=== PATIENT | female | born 1960 | race Caucasian/White ===

== ENCOUNTER 2016-11-14 07:08 | Emergency (ER) | payer MEDICAID ==
[~2016-11-14] VITALS: Ht 157.5 cm; Wt 65.0 kg
[~2016-11-14 07:08] MED LIST: ALBU6.7H INH; ALEN1TAB48 PO; DARU800T PO; DEPA500T3 PO; DIPH25CA PO; ELVI1TAB3 PO; EMOLLOT TOPICAL; FLUT1SPR5 EACH NARE; LACT10SO PO; LEVO.1 PO; MULTTAB67 PO; OXYB5TAB10 PO; OXYGENTANK NAS.CANULA; PERI8.6T PO; PERP16TA6 PO; POLY17PO3 PO; PROM6.256 PO; PULSE OXIMETER1 MI1; SERT-129 PO; TRIH2 PO
[2016-11-14 07:16] VITALS: BP 160/92; PULSE 69; RESP 17; TEMP 97.9; O2SAT 96
--- NOTE | 2016-11-14 07:38 | PD ---
HPI Chief Complaint: Chest Pain Time Seen by Provider: 07:21 Travel History International Travel<30 days: No Contact w/Intl Traveler<30days: No Traveled to known affect area: No History of Present Illness HPI 56-year-old female complains of generalized malaise and abdominal pain. Patient states the symptoms started yesterday. Patient has history COPD on home O2, schizophrenia, depression, hypothyroidism, HIV positive. Patient on medication for that. Patient denies any headache. Patient denies any visual change. Patient denies any neck pain. Patient denies any chest pain. Patient states that her heart feeling weak. Patient is a smoker. Patient states that she has mild cramping on the abdomen since yesterday. Patient denies any nausea vomiting diarrhea. Patient denies any dysuria or frequency. Patient denies any vaginal discharge or bleeding. Patient denies any back pain. Patient denies any focal weakness or numbness of the extremity. Patient was put on alendronate for osteoporosis. Patient supposed to receive 70 mg tablet weekly however patient has been given daily according to [facility] medical record. PFSH Past Medical History Hx Anticoagulant Therapy: No Anemia: Yes Autoimmune Disease: Yes Depression: Yes Cardiovascular Problems: No Chemotherapy: No Cerebrovascular Accident: No Diabetes: No Diminished Hearing: No Gastrointestinal Disorders: No Genitourinary: No Headaches: Yes Immune Disorder: Yes (HIV+) Insomnia: Yes Musculoskeletal: Yes (OSTEOPOROSIS) Neurologic: No Psychiatric: Yes Reproductive: No Respiratory: No Schizophrenia: Yes Thyroid Disease: Yes (HYPOTHYROID) ?: Not Menopausal: Yes : 3 Para: 2 Miscarriage: 1 : 0 Tubal Ligation: Yes Past Surgical History Hysterectomy: No Tonsillectomy: Yes Other Surgery: No Social History Alcohol Use: No Tobacco Use: Yes (1/2 PPD) Substance Use: No Allergies-Medications (Allergen,Severity, Reaction): Coded Allergies: haloperidol (Unverified Allergy, Severe, STIFFNESS, 10/31/16) fluphenazine (Unverified Adverse Reaction, Severe, 10/31/16) lurasidone (Unverified Adverse Reaction, Severe, STIFF, 10/31/16) olanzapine (Unverified Adverse Reaction, Severe, STIFF, 10/31/16) Reported Meds & Prescriptions Reported Meds & Active Scripts Active Miralax (Polyethylene Glycol 3350) 17 Gm Powd.pack 1 Pack PO DAILY Alyce-Colace (Sennosides-Docusate Sodium) 8.6-50 Mg Tab 1 Tab PO BID PRN Pulse Oximeter (Device) 1 Mis Mis 1 Ea .ROUTE DIRECTED Synthroid (Levothyroxine Sodium) 100 Mcg Tab 100 Mcg PO DAILY Ditropan (Oxybutynin Chloride) 5 Mg Tab 5 Mg PO DAILY Oxygen tank (Oxygen) 1 Ea Tank 2 Liter CANDICE.CANULA CONTINUOUS Oxygen Concentrator Portable Gaseous 2 L/min via Nasal Cannula Continuous For 99 months Alendronate (Alendronate Sodium) 70 Mg Tab 70 Mg PO WEEKLY Multiple Vitamin 1 Tab 1 Tab PO DAILY Reported Tussin Cough Liq (Dextromethorphan HBr) 15 Mg/5 Ml Syp 10 Ml PO Q6H PRN Sertraline (Sertraline HCl) 100 Mg Tab 100 Mg PO DAILY Diphenhydramine (Diphenhydramine HCl) 25 Mg Cap 25 Mg PO HS Depakote ER (Divalproex Sodium) 500 Mg [place] 1,000 Mg PO HS Trihexyphenidyl (Trihexyphenidyl HCl) 2 Mg Tab 2 Mg PO TID Prezista (Darunavir) 800 Mg Tab 800 Mg PO DAILY Genvoya (Lvohjndoatau-Sxfoszhycc-Jzhxyhcevwve-Tenofvir) [phone] Mg Tab 1 Tab PO DAILY Perphenazine 16 Mg Tab 8 Mg PO DAILY Review of Systems General / Constitutional: No: Fever Eyes: No: Visual changes HENT: No: Headaches Cardiovascular: No: Chest Pain or Discomfort Respiratory: No: Shortness of Breath Gastrointestinal: Positive: Abdominal Pain Genitourinary: No: Dysuria Musculoskeletal: No: Pain Skin: No Rash Neurologic: No: Weakness Psychiatric: No: Depression Endocrine: No: Polydipsia Hematologic/Lymphatic: No: Easy Bruising Physical Exam Narrative GENERAL: Well-nourished, well-developed patient. SKIN: Focused skin assessment warm/dry. HEAD: Normocephalic. EYES: No scleral icterus. No injection or drainage. NECK: Supple, trachea midline. No JVD or lymphadenopathy. CARDIOVASCULAR: Regular rate and rhythm without murmurs, gallops, or rubs. RESPIRATORY: Breath sounds equal bilaterally. No accessory muscle use. GASTROINTESTINAL: Abdomen soft, non-tender, nondistended. MUSCULOSKELETAL: No cyanosis, or edema. BACK: Nontender without obvious deformity. No CVA tenderness. Neurologic exam normal. Data Data Last Documented VS Vital Signs Date Time Temp Pulse Resp B/P (MAP) Pulse Ox O2 Delivery O2 Flow Rate FiO2 11/14/16 07:42 14 98 11/14/16 07:16 97.9 69 160/92 (114) Orders Orders Electrocardiogram (11/14/16 ) Electrocardiogram (11/14/16 07:33) Complete Blood Count With Diff (11/14/16 07:33) Comprehensive Metabolic Panel (11/14/16 07:33) Creatine Kinase (Cpk) (11/14/16 07:33) Troponin I (11/14/16 07:33) Prothrombin Time / Inr (Pt) (11/14/16 07:33) Act Partial Throm Time (Ptt) (11/14/16 07:33) Lipase (11/14/16 07:33) Urinalysis - C+S If Indicated (11/14/16 07:33) Thyroid Stimulating Hormone (11/14/16 07:33) Chest, Single Ap (11/14/16 07:33) Iv Access Insert/Monitor (11/14/16 07:33) Ecg Monitoring (11/14/16 07:33) Oximetry (11/14/16 07:33) Sodium Chlor 0.9% 1000 Ml Inj (Ns 1000 M (11/14/16 07:45) Labs Laboratory Tests Test 11/14/16 07:20 11/14/16 09:05 White Blood Count 6.5 TH/MM3 Red Blood Count 3.97 MIL/MM3 Hemoglobin 14.4 GM/DL Hematocrit 42.4 % Mean Corpuscular Volume 106.9 FL Mean Corpuscular Hemoglobin 36.1 PG Mean Corpuscular Hemoglobin Concent 33.8 % Red Cell Distribution Width 14.3 % Platelet Count 314 TH/MM3 Mean Platelet Volume 7.3 FL Neutrophils (%) (Auto) 74.8 % Lymphocytes (%) (Auto) 17.9 % Monocytes (%) (Auto) 6.5 % Eosinophils (%) (Auto) 0.2 % Basophils (%) (Auto) 0.6 % Neutrophils # (Auto) 4.8 TH/MM3 Lymphocytes # (Auto) 1.2 TH/MM3 Monocytes # (Auto) 0.4 TH/MM3 Eosinophils # (Auto) 0.0 TH/MM3 Basophils # (Auto) 0.0 TH/MM3 CBC Comment DIFF FINAL Differential Comment Prothrombin Time 11.2 SEC Prothromb Time International Ratio 1.0 RATIO Activated Partial Thromboplast Time 29.9 SEC Blood Urea Nitrogen 4 MG/DL Creatinine 0.86 MG/DL Random Glucose 106 MG/DL Total Protein 7.6 GM/DL Albumin 3.8 GM/DL Calcium Level 8.7 MG/DL Alkaline Phosphatase 70 U/L Aspartate Amino Transf (AST/SGOT) 24 U/L Alanine Aminotransferase (ALT/SGPT) 26 U/L Total Bilirubin 0.6 MG/DL Sodium Level 130 MEQ/L Potassium Level 4.0 MEQ/L Chloride Level 93 MEQ/L Carbon Dioxide Level 26.0 MEQ/L Anion Gap 11 MEQ/L Estimat Glomerular Filtration Rate 68 ML/MIN Total Creatine Kinase 147 U/L Troponin I LESS THAN 0.02 NG/ML Lipase 79 U/L Thyroid Stimulating Hormone 3rd Gen 2.770 uIU/ML Urine Color LIGHT-YELLOW Urine Turbidity CLEAR Urine pH 7.0 Urine Specific [place] 1.002 Urine Protein NEG mg/dL Urine Glucose (UA) NEG mg/dL Urine Ketones NEG mg/dL Urine Occult Blood NEG Urine Nitrite NEG Urine Bilirubin NEG Urine Urobilinogen LESS THAN 2.0 MG/DL Urine Leukocyte Esterase NEG Microscopic Urinalysis Comment CULT NOT INDICATED MDM Medical Decision Making Medical Screen Exam Complete: Yes Emergency Medical Condition: Yes Interpretation(s) Last Impressions Chest X-Ray 11/14/16 0733 Signed Impressions: Service Date/Time: Monday, November 14, 2016 07:55 - CONCLUSION: No acute disease. Tato Durant Jr., MD 9:06 AM. CBC within normal limit. Sodium 130. Cardiac enzymes are normal. Differential Diagnosis Differential diagnosis including viral syndrome, dehydration, electrolyte imbalance, angina, NV, PE, pneumothorax, gastritis, PUD, pancreatitis, cholecystitis, colitis, UTI, pyelonephritis. Narrative Course 56-year-old female with generalized malaise and abdominal pain. Diagnosis Primary Impression: Atypical chest pain Patient Instructions: General Instructions Additional Instructions: Advised patient to take Alendronate weekly not daily. Continue with all other medication. Follow-up with personal physician. Return if worse. Med/Other Pt SpecificInfo: No Change to Meds Disposition: 01 DISCHARGE HOME Condition: Stable Noé Atwood MD Nov 14, 2016 07:38
[2016-11-14] MEDS ORDERED: PERP16TA6 PO ×2 (07:39)
[2016-11-14] MEDS ORDERED: TUSS15SY PO (07:39)
[2016-11-14 07:42] VITALS: RESP 14; O2SAT 98
[2016-11-14] MEDS ORDERED: SODIUM CHLOR 0.9% 1000 ML INJ 1,000 ML IV SCH (07:45)
[2016-11-14 07:54] LABS: AUTOMATED NEUTROPHIL # 4.8 TH/MM3 (1.8-7.7); BASOPHIL % 0.6 % (0.0-2.0); EOSINOPHIL % 0.2 % (0.0-4.0); HEMATOCRIT 42.4 % (35.0-46.0); HEMO FLAGS DIFF FINAL; LYMPH % 17.9 % (9.0-44.0); LYMPHOCYTE # 1.2 TH/MM3 (1.0-4.8); MEAN CELL VOLUME 106.9 FL (80.0-100.0); MEAN CORPUSCULAR HEMOGLOBIN 36.1 PG (27.0-34.0); MEAN CORPUSCULAR HGB CONC 33.8 % (32.0-36.0); MONO % 6.5 % (0.0-8.0); NEUT % 74.8 % (16.0-70.0); PLATELET COUNT 314 TH/MM3 (150-450); RED BLOOD COUNT 3.97 MIL/MM3 (4.00-5.30); RED CELL DISTRIBUTION WIDTH 14.3 % (11.6-17.2); WHITE BLOOD COUNT 6.5 TH/MM3 (4.0-11.0)
[2016-11-14 08:00] LABS: APTT (PATIENT) 29.9 SEC (24.3-30.1); PROTHROMBIN TIME - PATIENT 11.2 SEC (9.8-11.6)
[2016-11-14 08:29] LABS: ALKALINE PHOSPHATASE 70 U/L (45-117); ALT (GPT) 26 U/L (10-53); ANION GAP 11 MEQ/L (5-15); AST (GOT) 24 U/L (15-37); BLOOD UREA NITROGEN 4 MG/DL (7-18); CHLORIDE 93 MEQ/L (98-107); CREATINE KINASE 147 U/L (26-192); GLOMERULAR FILTRATION RATE 68 ML/MIN (>89); SODIUM (NA) 130 MEQ/L (136-145); TOTAL BILIRUBIN ADULT 0.6 MG/DL (0.2-1.0)
--- NOTE | 2016-11-14 08:32 | RADRPT ---
EXAM DATE/TIME: 11/14/2016 07:55 [facility] COMPARISON: CHEST SINGLE AP, March 04, 2016, 11:10. INDICATIONS : Chest pain. Patient states she had a fever, body aches and weakness. MEDICAL HISTORY : Chronic obstructive pulmonary disease. HIV. Hypothyroidism. SURGICAL HISTORY : Tubal ligation. Tonsillectomy. ENCOUNTER: Initial ACUITY: 1 week PAIN SCORE: 5/10 LOCATION: Bilateral chest FINDINGS: A single view of the chest demonstrates the lungs to be symmetrically aerated without evidence of mas s, infiltrate or effusion. The cardiomediastinal contours are unremarkable. Osseous structures are intact. CONCLUSION: No acute disease. Tato Durant Jr., MD on November 14, 2016 at 8:24 Board Certified Radiologist. This report was verified electronically.
[2016-11-14 09:18] LABS: BLOOD, URINE NEG (NEG); GLUCOSE,URINE NEG (NEG); KETONE, URINE NEG (NEG); NITRITE,URINE NEG (NEG); URINE COLOR LIGHT-YELLOW (YELLW/STRAW)
[2016-11-14 09:25] LABS: COMMENT (UR) CULT NOT INDICATED; CULTURE IF INDICATED CULT NOT INDICATED
--- NOTE | 2016-11-14 13:12 | EKG ---
Date Performed: 11/14/2016 Time Performed: 07:30:22 PTAGE: 56 years EKG: Sinus rhythm NORMAL ECG Compared to prior tracing no significant change DOCTOR: Gill Lindo Interpretating Date/Time 11/14/2016 13:11:30
[2016-12-12] MEDS ORDERED: ALBUAER3 INH ×2 (14:54→14:57)
[2016-12-12] MEDS ORDERED: ALEV220T14 PO (14:54)
[2016-12-12] MEDS ORDERED: TRIH2 PO (14:54)
[2016-12-12] MEDS ORDERED: PALI234P IM (14:54)
[2016-12-12] MEDS ORDERED: DIPH25CA PO (14:54)
[2016-12-12] MEDS ORDERED: VITA100064 PO (15:03)
[2016-12-12] MEDS ORDERED: PULM90IN INH (15:03)
[2016-12-17] MEDS ORDERED: PULM90IN INH (21:44)
[2016-12-25] MEDS ORDERED: BECL80AE3 INH (13:25)
== END 2016-11-14 11:03 | disposition home or self-care (01) ==
LOC: NEPE 07:08
DX: R07.89 Other chest pain (principal); R53.81 Other malaise; R10.9 Unspecified abdominal pain; F20.9 Schizophrenia, unspecified; E03.9 Hypothyroidism, unspecified; D64.9 Anemia, unspecified; M81.0 Age-related osteoporosis without current pathological fracture; F17.200 Nicotine dependence, unspecified, uncomplicated; Z21 Asymptomatic human immunodeficiency virus [HIV] infection status
CPT/HCPCS: 71010; 80053; 81001; 82550; 83690; 84443; 84484; 85025; 85610; 85730; 93005; 96360; 99285; J7030

== ENCOUNTER 2016-11-17 08:36 | Inpatient (IN) | payer MEDICAID, OTHER ==
[~2016-11-17] VITALS: Ht 160 cm; Wt 60.2 kg
[~2016-11-17 08:36] MED LIST changes: -ALBU6.7H INH; -EMOLLOT TOPICAL; -FLUT1SPR5 EACH NARE; -LACT10SO PO; -PROM6.256 PO; +TUSS15SY PO
[2016-11-17 08:52] VITALS: BP 105/77; PULSE 85; RESP 19; TEMP 97.8; O2SAT 99
[2016-11-17 08:59] VITALS: BP 105/77; PULSE 85; RESP 19; TEMP 97.8; O2SAT 99
[2016-11-17 09:37] LABS: AUTOMATED NEUTROPHIL # 6.3 TH/MM3 (1.8-7.7); BASOPHIL % 0.5 % (0.0-2.0); EOSINOPHIL % 0.3 % (0.0-4.0); HEMATOCRIT 45.6 % (35.0-46.0); HEMO FLAGS DIFF FINAL; LYMPH % 17.5 % (9.0-44.0); LYMPHOCYTE # 1.5 TH/MM3 (1.0-4.8); MEAN CELL VOLUME 106.3 FL (80.0-100.0); MEAN CORPUSCULAR HEMOGLOBIN 36.1 PG (27.0-34.0); MONO % 7.8 % (0.0-8.0); NEUT % 73.9 % (16.0-70.0); PLATELET COUNT 304 TH/MM3 (150-450); RED BLOOD COUNT 4.29 MIL/MM3 (4.00-5.30); WHITE BLOOD COUNT 8.6 TH/MM3 (4.0-11.0)
[2016-11-17 10:04] LABS: ALKALINE PHOSPHATASE 73 U/L (45-117); ALT (GPT) 27 U/L (10-53); ANION GAP 8 MEQ/L (5-15); AST (GOT) 20 U/L (15-37); BLOOD UREA NITROGEN 8 MG/DL (7-18); CHLORIDE 91 MEQ/L (98-107); GLOMERULAR FILTRATION RATE 48 ML/MIN (>89); SODIUM (NA) 129 MEQ/L (136-145); TOTAL BILIRUBIN ADULT 0.6 MG/DL (0.2-1.0)
[2016-11-17 10:07] LABS: ALCOHOL LESS THAN 3 MG/DL (0-5)
[2016-11-17] MEDS ORDERED: SODIUM CHLOR 0.9% 1000 ML INJ 1,000 ML IV SCH (10:45)
--- NOTE | 2016-11-17 11:29 | PD ---
HPI Chief Complaint: Psychiatric Symptoms Time Seen by Provider: 09:13 Travel History International Travel<30 days: No Contact w/Intl Traveler<30days: No Traveled to known affect area: No History of Present Illness HPI This is a 56-year-old who has a history of schizophrenia who presents to the emergency department with increasing auditory hallucinations. She says the hallucinations are telling her to kill herself, and she finds herself walking out of her assisted living facility. She feels like her schizophrenia is decompensated and she has been having trouble dealing with the voices and they' re driving her crazy. Her symptoms of been constant, worsening over the past several weeks and severe. PFSH Past Medical History Hx Anticoagulant Therapy: No Anemia: Yes Autoimmune Disease: Yes Depression: Yes Cardiovascular Problems: No Chemotherapy: No Cerebrovascular Accident: No Diabetes: No Diminished Hearing: No Gastrointestinal Disorders: No Genitourinary: No Headaches: Yes Immune Disorder: Yes (HIV+) Insomnia: Yes Musculoskeletal: Yes (OSTEOPOROSIS) Neurologic: No Psychiatric: Yes Reproductive: No Respiratory: Yes Schizophrenia: Yes Thyroid Disease: Yes (HYPOTHYROID) Tetanus Vaccination: Unknown Influenza Vaccination: Yes ?: Not Menopausal: Yes : 3 Para: 2 Miscarriage: 1 : 0 Tubal Ligation: Yes Past Surgical History Gynecologic Surgery: Yes (TUBL LIGATION ) Hysterectomy: No Tonsillectomy: Yes Other Surgery: No Social History Alcohol Use: No Tobacco Use: Yes (1/2 PPD) Substance Use: No Allergies-Medications (Allergen,Severity, Reaction): Coded Allergies: haloperidol (Unverified Allergy, Severe, STIFFNESS, 11/17/16) fluphenazine (Unverified Adverse Reaction, Severe, 11/17/16) lurasidone (Unverified Adverse Reaction, Severe, STIFF, 11/17/16) olanzapine (Unverified Adverse Reaction, Severe, STIFF, 11/17/16) Reported Meds & Prescriptions Reported Meds & Active Scripts Active Miralax (Polyethylene Glycol 3350) 17 Gm Powd.pack 1 Pack PO DAILY Alyce-Colace (Sennosides-Docusate Sodium) 8.6-50 Mg Tab 1 Tab PO BID PRN Pulse Oximeter (Device) 1 Mis Mis 1 Ea .ROUTE DIRECTED Synthroid (Levothyroxine Sodium) 100 Mcg Tab 100 Mcg PO DAILY Ditropan (Oxybutynin Chloride) 5 Mg Tab 5 Mg PO DAILY Oxygen tank (Oxygen) 1 Ea Tank 2 Liter CANDICE.CANULA CONTINUOUS Oxygen Concentrator Portable Gaseous 2 L/min via Nasal Cannula Continuous For 99 months Alendronate (Alendronate Sodium) 70 Mg Tab 70 Mg PO WEEKLY Multiple Vitamin 1 Tab 1 Tab PO DAILY Reported Perphenazine 16 Mg Tab 16 Mg PO HS Perphenazine 16 Mg Tab 8 Mg PO DAILY Tussin Cough Liq (Dextromethorphan HBr) 15 Mg/5 Ml Syp 10 Ml PO Q6H PRN Sertraline (Sertraline HCl) 100 Mg Tab 100 Mg PO DAILY Diphenhydramine (Diphenhydramine HCl) 25 Mg Cap 25 Mg PO HS Depakote ER (Divalproex Sodium) 500 Mg [place] 1,000 Mg PO HS Trihexyphenidyl (Trihexyphenidyl HCl) 2 Mg Tab 2 Mg PO TID Prezista (Darunavir) 800 Mg Tab 800 Mg PO DAILY Genvoya (Aulgvtihlsel-Tsqkeroqnw-Qmusnrlyqzfv-Tenofvir) [phone] Mg Tab 1 Tab PO DAILY Review of Systems Except as stated in HPI: all other systems reviewed are Neg Physical Exam Narrative GENERAL:Well appearing, no acute distress SKIN: Focused skin assessment warm and dry. HEAD: Atraumatic. Normocephalic. EYES: Pupils equal and round. No injection or drainage. ENT: Moist mucous membranes NECK: Trachea midline. CARDIOVASCULAR: Regular rate and rhythm. No murmur appreciated. RESPIRATORY: Clear to auscultation. Breath sounds equal bilaterally. GASTROINTESTINAL: Abdomen soft, non-tender, nondistended. MUSCULOSKELETAL: No obvious deformities. NEUROLOGICAL: Awake and alert. No obvious cranial nerve deficits. Moving all extremities. PSYCHIATRIC: Impaired judgment. Expresses auditory hallucinations. Data Data Last Documented VS Vital Signs Date Time Temp Pulse Resp B/P (MAP) Pulse Ox O2 Delivery O2 Flow Rate FiO2 11/17/16 08:59 85 19 11/17/16 08:59 97.8 105/77 (86) 99 Room Air Orders Orders Complete Blood Count With Diff (11/17/16 09:21) Comprehensive Metabolic Panel (11/17/16 09:21) Psych Screen (11/17/16 09:21) Drug Screen, Random Urine (11/17/16 09:21) Alcohol (Ethanol) (11/17/16 09:21) Diet Regular Basic (11/17/16 Breakfast) Sodium Chlor 0.9% 1000 Ml Inj (Ns 1000 M (11/17/16 10:45) Labs Laboratory Tests Test 11/17/16 09:23 11/17/16 09:26 Blood Urea Nitrogen 8 MG/DL Creatinine 1.17 MG/DL Random Glucose 83 MG/DL Total Protein 7.8 GM/DL Albumin 4.3 GM/DL Calcium Level 9.8 MG/DL Alkaline Phosphatase 73 U/L Aspartate Amino Transf (AST/SGOT) 20 U/L Alanine Aminotransferase (ALT/SGPT) 27 U/L Total Bilirubin 0.6 MG/DL Sodium Level 129 MEQ/L Potassium Level 4.0 MEQ/L Chloride Level 91 MEQ/L Carbon Dioxide Level 30.0 MEQ/L Anion Gap 8 MEQ/L Estimat Glomerular Filtration Rate 48 ML/MIN Urine Opiates Screen NEG Urine Barbiturates Screen NEG Urine Amphetamines Screen NEG Urine Benzodiazepines Screen NEG Urine Cocaine Screen NEG Urine Cannabinoids Screen NEG Ethyl Alcohol Level LESS THAN 3 MG/DL White Blood Count 8.6 TH/MM3 Red Blood Count 4.29 MIL/MM3 Hemoglobin 15.5 GM/DL Hematocrit 45.6 % Mean Corpuscular Volume 106.3 FL Mean Corpuscular Hemoglobin 36.1 PG Mean Corpuscular Hemoglobin Concent 34.0 % Red Cell Distribution Width 14.0 % Platelet Count 304 TH/MM3 Mean Platelet Volume 7.5 FL Neutrophils (%) (Auto) 73.9 % Lymphocytes (%) (Auto) 17.5 % Monocytes (%) (Auto) 7.8 % Eosinophils (%) (Auto) 0.3 % Basophils (%) (Auto) 0.5 % Neutrophils # (Auto) 6.3 TH/MM3 Lymphocytes # (Auto) 1.5 TH/MM3 Monocytes # (Auto) 0.7 TH/MM3 Eosinophils # (Auto) 0.0 TH/MM3 Basophils # (Auto) 0.0 TH/MM3 CBC Comment DIFF FINAL Differential Comment MDM Medical Decision Making Medical Screen Exam Complete: Yes Emergency Medical Condition: Yes Interpretation(s) Afebrile, no tachycardia, normotensive No leukocytosis Hyponatremia Urine drug screen is negative Alcohols negative Differential Diagnosis Schizophrenia, substance intoxication, electrolyte abnormality Narrative Course This is a 56-year-old female who has a history of schizophrenia who presents to the emergency department with auditory hallucinations that are increasing along with suicidal thoughts. Labs are obtained which are reassuring. Urine drug screen is negative and alcohol is negative. Patient requires psychiatric evaluation. She is slightly hyponatremic and was given a liter of IV hydration. Susu Valdes MD Nov 17, 2016 11:29
[2016-11-17 17:50] VITALS: BP 121/81; PULSE 68; RESP 18; O2SAT 96
[2016-11-17] MEDS ORDERED: LORazepam 2 MG/ML VIAL IM PRN (21:45)
[2016-11-17] MEDS ORDERED: BENZTROPINE MESYLATE 2 MG/2 ML VIAL IM PRN (21:45)
[2016-11-17] MEDS ORDERED: ALUMINUM/MAGNESIUM/SIMETH 30 ML CUP PO PRN (21:45)
[2016-11-17] MEDS ORDERED: diphenhydrAMINE HCL 50 MG CAP PO PRN (21:45)
[2016-11-17] MEDS ORDERED: BENZTROPINE MESYLATE 1 MG TAB PO PRN (21:45)
[2016-11-17] MEDS ORDERED: DOCUSATE SODIUM 50 MG/SENNA 8.6 MG TAB PO PRN (21:45)
[2016-11-17 21:51] VITALS: BP 103/77; PULSE 66; RESP 18; O2SAT 97
[2016-11-17 22:55] VITALS: BP 90/63; PULSE 79; RESP 16; TEMP 97.6; O2SAT 97
[2016-11-18] MEDS: LEVOTHYROXINE SODIUM 100 MCG TAB PO SCH (06:07)
[2016-11-18 06:11] VITALS: BP 119/83; PULSE 87; RESP 16; TEMP 97.6; O2SAT 97
[2016-11-18] MEDS: NICOTINE 21 MG/24 HR PATCH T-DERMAL SCH (08:33)
[2016-11-18] MEDS: OXYBUTYNIN CHLORIDE 5 MG TAB PO SCH (08:33)
[2016-11-18] MEDS: SERTRALINE HCL 100 MG TAB PO SCH (08:33)
[2016-11-18] MEDS: TRIHEXYPHENIDYL HCL 2 MG TAB PO SCH ×3 (08:33→18:14)
[2016-11-18] MEDS: POLYETHYLENE GLYCOL 17 GM PKG PO SCH (08:33)
[2016-11-18] MEDS: MULTIVITAMIN TAB PO SCH (08:33)
--- NOTE | 2016-11-18 08:47 | HHI.HP ---
Provisional Diagnosis Admission Date Nov 17, 2016 at 21:33 [place] I. 1. Schizophrenia, paranoid type, acute exacerbation [place] II. Deferred Certification of Person's Competence To Provide Express and Informed Consent I have personally examined Xuan Back , a person being served at [facility] on, Nov 18, 2016 08:47. Express and informed consent means consent voluntarily given in writing, by a competent person, after sufficient explanation and disclosure of the subject matter involved to enable the person to make a knowing and willful decision without any element of force, fraud, deceit, duress, or other form of constraint or coercion. This person is 18 years of age or older, is not now known to be incompetent to consent to treatment with a guardian advocate, and does not have a health care surrogate or proxy currently making medical treatment decisions. I have found this person to be one of the following: [X] Competent to provide express and informed consent, as defined above, for voluntary admission to this facility and is competent to provide express and informed consent for treatment. He/she has the consistent capacity to make well reasoned, willful, and knowing decisions concerning his or her medical or mental health treatment. The person fully and consistently understands the purpose of the admission for examination/placement and is fully capable of personally exercising all rights assured [place] Incompetent to provide express and informed consent to voluntary admission, and this is incompetent to provide express and informed consent to treatment. The person must be transferred to involuntary status and a petition for a guardian advocate filed with the Circuit Court. [] Refusing to provide express and informed consent to voluntary admission but is competent to provide express and informed consent for treatment. The person must be discharged or transferred to involuntary status. Form shall be completed within 24 hours of a person's arrival at the receiving facility and filed in the clinical record of each person: 1. Admitted on a voluntary basis 2. Permitted to provide express and informed consent to his/her own treatment 3. Allowed to transfer from involuntary to voluntary status 4. Prior to permitting a person to consent to his or her own treatment after having been previously found incompetent to consent to treatment. History of Present Illness Capacity: Has Capacity HPI Ms. Back is a 56-year-old female with a history of schizophrenia who presents under a Guillaume act. Reviewing the electronic medical record, I note the patient was admitted here most recently under Dr. Darden in 2012. Patient seen and examined. Chart reviewed. Case discussed with nursing staff. On my examination today, the patient reports 2 weeks of "threatening voices" that she describes as her own voice inside her head and intermittent in frequency. She says that the voices are telling her that they want her to get hurt or killed. She is feeling increasingly paranoid and nervous, particularly about going outside of the facility that she stays at. Mood is depressed. She says that she has been pacing the grounds more. Endorses suicidal ideation with no plan. Denies homicidal ideation. She believes that her psychotropic medications have to be changed. No hypomanic or manic symptoms. No other delusions or hallucinations. Remainder of psychiatric ROS is negative. Past psychiatric history: Patient reports a history of schizophrenia. Follows at [facility]. Last hospitalization was 3 years ago. Endorses a history of suicide attempt by aspirin overdose. Family history: The patient reports that both of her parents struggled with psychotic illness. Chemical dependency history: Patient denies any abuse of drugs or alcohol. Social history: The patient reports she resides a [employer] [place] for 5 years. She says that she doesn't like where she lives at because there are "too many voices." 10th grade education. On disability. with 2 children. Review of Systems Except as stated in HPI: all other systems reviewed are Neg Past Psych History Psychological trauma history No reported trauma history to me Violence risk - others (6 mos) Indeterminate. Psychotic and unpredictable Violence risk - self (6 mos) Elevated. Suicidal ideation. No plan or intent. Psychotic and unpredictable. Substance Abuse History Drugs/Alcohol past 12 months See above Past Family Social History Coded Allergies: haloperidol (Unverified Allergy, Severe, STIFFNESS, 11/17/16) fluphenazine (Unverified Adverse Reaction, Severe, 11/17/16) lurasidone (Unverified Adverse Reaction, Severe, STIFF, 11/17/16) olanzapine (Unverified Adverse Reaction, Severe, STIFF, 11/17/16) Past Medical History See electronic medical record Active Scripts Polyethylene Glycol 3350 (Miralax) 17 Gm Powd.pack, 1 PACK PO DAILY, #30 BOX Prov:Citlalli Fulton MD 08/24/16 Sennosides-Docusate Sodium (Alyce-Colace) 8.6-50 Mg Tab, 1 TAB PO BID Y for Constipation, #60 TAB 0 Refills Prov:Citlalli Fulton MD 08/24/16 Pulse Oximeter (Pulse Oximeter) 1 Mis Mis, 1 EA .ROUTE DIRECTED, #1 EA Prov:Citlalli Fulton MD 08/17/16 Levothyroxine (Synthroid) 100 Mcg Tab, 100 MCG PO DAILY for Thyroid, #30 TAB 11 Refills Prov:Citlalli Fulton MD 07/31/16 Oxybutynin (Ditropan) 5 Mg Tab, 5 MG PO DAILY for Urinary Symptom Managemen, # 30 TAB 0 Refills Prov:Citlalli Fulton MD 06/07/16 Oxygen tank (Oxygen tank) 1 Ea Tank, 2 LITER CANDICE.CANULA CONTINUOUS for HYPOXEMIA PREVENTION, #1 CYLINDER Oxygen Concentrator Portable Gaseous 2 L/min via Nasal Cannula Continuous For 99 months Prov:Citlalli Fulton MD 04/06/16 Alendronate (Alendronate) 70 Mg Tab, 70 MG PO WEEKLY for Osteporosis Treatment, #4 TAB 11 Refills Prov:Citlalli Fulton MD 04/04/16 Multiple Vitamin (Multiple Vitamin) 1 Tab, 1 TAB PO DAILY for Nutritional Supplement, #30 TAB 11 Refills Prov:Citlalli Fulton MD 02/17/16 Reported Medications Perphenazine (Perphenazine) 16 Mg Tab, 16 MG PO HS, #30 TAB 0 Refills 11/14/16 Perphenazine (Perphenazine) 16 Mg Tab, 8 MG PO DAILY, #30 TAB 0 Refills 11/14/16 Dextromethorphan Liq (Tussin Cough Liq) 15 Mg/5 Ml Syp, 10 ML PO Q6H Y for COUGH , #1 BOTTLE 0 Refills 11/14/16 Sertraline (Sertraline) 100 Mg Tab, 100 MG PO DAILY, #30 TAB 0 Refills 03/04/16 Diphenhydramine (Diphenhydramine) 25 Mg Cap, 25 MG PO HS for INSOMNIA, CAP 0 Refills 03/04/16 Divalproex ER (Depakote ER) 500 Mg [place], 1000 MG PO HS for Control Seizures, # 60 TAB 0 Refills 03/04/16 Trihexyphenidyl (Trihexyphenidyl) 2 Mg Tab, 2 MG PO TID for SCHIZOPHRENIA, #90 TAB 0 Refills 03/04/16 Darunavir (Prezista) 800 Mg Tab, 800 MG PO DAILY for Mgmt Viral Infection, #30 TAB 0 Refills 03/04/16 Xtchrfjlpuda-Nkprbqmagy-Hbioeyaiglht-Tenofvir (Genvoya) [phone] Mg Tab, 1 TAB PO DAILY for Mgmt Viral Infection, #30 TAB 0 Refills 03/04/16 Discontinued Reported Medications Perphenazine (Perphenazine) 16 Mg Tab, 16 MG PO HS, #30 TAB 0 Refills 03/04/16 Discontinued Scripts Fluticasone Nasal [place] (Flonase Nasal [place]) 50 Mcg/Act [place], 50 MCG EACH NARE BID for Allergies, #1 BOTTLE 0 Refills Apply two sprays into each nostril daily for one week, then apply one spray into each nostril daily. Prov:Ashanti Saavedra MD R2 10/24/16 Emollient (Eucerin Original Healing) 1 Lot Lot, 1 APPLIC TOPICAL BID, #1 TUBE 6 Refills Prov:Citlalli Fulton MD 08/22/16 Albuterol 6.7 GM Inh (Proventil Hfa 6.7 GM Inh) 90 Mcg/Act Aer, 1-2 PUFF INH Q4H Y for SHORTNESS OF BREATH, #1 INHALER 0 Refills Prov:Citlalli Fulton MD 03/27/16 Promethazine-Codeine Liq (Promethazine-Codeine Liq) 6.25-10 Mg/5 Ml Syrp, 5 ML PO HS Y for COUGH, #60 ML 0 Refills Prov:Citlalli Fulton MD 03/23/16 Lactulose Liq (Lactulose Liq) 10 Gm/15 Ml Soln, 30 ML PO BID Y for CONSTIPATION , #60 ML 0 Refills Prov:Noé Atwood MD 03/04/16 Current Medications Medications (Trade) Dose Ordered Sig/Promise Route Start Time Stop Time Status Last Admin (Prezista) 800 mg DAILY PO 11/18/16 09:00 (Benadryl) 25 mg HS PO 11/18/16 21:00 (Depakote Er) 1,000 mg HS PO 11/18/16 21:00 (Synthroid) 100 mcg DAILY@0600 PO 11/18/16 06:00 11/18/16 06:07 (Ditropan) 5 mg DAILY PO 11/18/16 09:00 11/18/16 08:33 (Miralax) 17 gm DAILY PO 11/18/16 09:00 11/18/16 08:33 (Alyce-Colace) 1 tab BID PRN PO 11/17/16 21:45 (Zoloft) 100 mg DAILY PO 11/18/16 09:00 11/18/16 08:33 (Artane) 2 mg TID PO 11/18/16 09:00 11/18/16 08:33 Patient Own Medication PT OWN MED: Elvitegravir-Cobicist... DAILY PO 11/18/16 09:00 (Theragran) 1 tab DAILY PO 11/18/16 09:00 11/18/16 08:33 (Trilafon) 8 mg DAILY PO 11/18/16 09:00 (Trilafon) 16 mg HS PO 11/18/16 21:00 (Ativan) 1 mg Q6H PRN PO 11/17/16 21:45 (Ativan Inj) 1 mg Q6H PRN IM 11/17/16 21:45 (Benadryl) 50 mg HS PRN PO 11/17/16 21:45 (Tylenol) 650 mg Q4H PRN PO 11/17/16 21:45 (Mag-Al Plus Susp Liq) 30 ml Q6H PRN PO 11/17/16 21:45 (Habitrol 21 Mg Patch.24 Hr) 1 patch DAILY T-DERMAL 11/18/16 09:00 11/18/16 08:33 (Cogentin) 1 mg Q12H PRN PO 11/17/16 21:45 (Cogentin Inj) 1 mg Q12H PRN IM 11/17/16 21:45 Miscellaneous Information 1 DAILY T-DERMAL 11/18/16 09:00 Patient's Strengths (min. 2) In a monitored setting. Verbally fluent. Physical Exam Physical exam completed by ED provider. On my examination today, no acute physical distress. No motor abnormalities noticed. Labs and vitals reviewed: Vital Signs Vital Signs Date Time Temp Pulse Resp B/P (MAP) Pulse Ox O2 Delivery O2 Flow Rate FiO2 11/18/16 06:11 97.6 87 16 119/83 (95) 97 11/17/16 17:50 Room Air Lab Results Laboratory Tests Test 11/17/16 09:23 11/17/16 09:26 Blood Urea Nitrogen 8 MG/DL Creatinine 1.17 MG/DL Random Glucose 83 MG/DL Total Protein 7.8 GM/DL Albumin 4.3 GM/DL Calcium Level 9.8 MG/DL Alkaline Phosphatase 73 U/L Aspartate Amino Transf (AST/SGOT) 20 U/L Alanine Aminotransferase (ALT/SGPT) 27 U/L Total Bilirubin 0.6 MG/DL Sodium Level 129 MEQ/L Potassium Level 4.0 MEQ/L Chloride Level 91 MEQ/L Carbon Dioxide Level 30.0 MEQ/L Anion Gap 8 MEQ/L Estimat Glomerular Filtration Rate 48 ML/MIN Urine Opiates Screen NEG Urine Barbiturates Screen NEG Urine Amphetamines Screen NEG Urine Benzodiazepines Screen NEG Urine Cocaine Screen NEG Urine Cannabinoids Screen NEG Ethyl Alcohol Level LESS THAN 3 MG/DL White Blood Count 8.6 TH/MM3 Red Blood Count 4.29 MIL/MM3 Hemoglobin 15.5 GM/DL Hematocrit 45.6 % Mean Corpuscular Volume 106.3 FL Mean Corpuscular Hemoglobin 36.1 PG Mean Corpuscular Hemoglobin Concent 34.0 % Red Cell Distribution Width 14.0 % Platelet Count 304 TH/MM3 Mean Platelet Volume 7.5 FL Neutrophils (%) (Auto) 73.9 % Lymphocytes (%) (Auto) 17.5 % Monocytes (%) (Auto) 7.8 % Eosinophils (%) (Auto) 0.3 % Basophils (%) (Auto) 0.5 % Neutrophils # (Auto) 6.3 TH/MM3 Lymphocytes # (Auto) 1.5 TH/MM3 Monocytes # (Auto) 0.7 TH/MM3 Eosinophils # (Auto) 0.0 TH/MM3 Basophils # (Auto) 0.0 TH/MM3 CBC Comment DIFF FINAL Differential Comment Hyponatremia and decreased GFR noted. Laboratories ordered from this morning are pending. Mental Status Examination No motor abnormalities noted. Speech: Unremarkable Orientation: Person, Place (at least) Memory: Unremarkable Thought Process: Logical, Linear Thought Content: Paranoid Language Approximately average Fund of Knowledge Approximately average Hallucination Type: Auditory (as above) Attention and Concentration: Other (fair) Suicidal Ideation: Yes Previous Suicide Attempts: Yes Homicidal Ideation: No Previous Homicide Attempts: No Insight: Fair Judgment: WNL (fair) Affect: Other (blunted) Mood: Other (depressed) Assessment & Plan Problem List: (1) Schizophrenia ICD Codes: F20.9 - Schizophrenia, unspecified Assessment & Plan 56-year-old female with psychiatric history as detailed above who presents under a Guillaume act. On my examination today, patient reports approximately 2 weeks of threatening voices. Also reports depression and suicidal ideation without plan or intent. She does have a history of suicide attempts. Patient' s home psychotropics include Trilafon 8/24 mg and Invega Sustenna among other agents. I think, prior to switching antipsychotics, further titration of Trilafon is warranted to see if we can bring her symptoms under better control. Patient requires psychiatric hospitalization at this time for safety, observation and stabilization. Admit inpatient. Voluntary status. Titrate Trilafon to 12/24 mg. Continue Depakote, Zoloft and Artane. Consult to the hospitalist. Continue medical medications with further adjustments as per the hospitalist. Ativan as needed for anxiety, Ogen as needed for EPS, Benadryl as needed for sleep. Vitals every shift. Counselor to see. Disposition planning. Estimated length of stay : 7-9 days. Discharge Planning Pending stabilization Request HC Surrog/Guard Advoc?: No Problem Qualifiers (1) Schizophrenia: Qualified Codes: F20.0 - Paranoid schizophrenia Abdon Vaughn MD Nov 18, 2016 08:47
[2016-11-18] MEDS ORDERED: PERPHENAZINE 4 MG TAB PO SCH ×2 (09:00→21:00)
[2016-11-18] MEDS: [UNRECOGNIZED DRUG - OTHER] PO SCH (09:00)
[2016-11-18] MEDS: REMOVE OLD PATCH T-DERMAL SCH (09:00)
[2016-11-18] MEDS: DARUNAVIR 800 MG TAB PO SCH (09:06)
[2016-11-18 10:07] LABS: ANION GAP 6 MEQ/L (5-15); BICARBONATE 33.3 MEQ/L (21.0-32.0); BLOOD UREA NITROGEN 12 MG/DL (7-18); CHLORIDE 98 MEQ/L (98-107); GLOMERULAR FILTRATION RATE 68 ML/MIN (>89); POTASSIUM 4.2 MEQ/L (3.5-5.1); SODIUM (NA) 137 MEQ/L (136-145)
[2016-11-18 10:12] LABS: HDL CHOLESTEROL 46.4 MG/DL (40.0-60.0); LDL CHOLESTEROL 155 MG/DL (0-99)
--- NOTE | 2016-11-18 10:13 | EKG ---
Date Performed: 11/18/2016 Time Performed: 09:33:22 PTAGE: 56 years EKG: Sinus rhythm POSSIBLE RIGHT ATRIAL ENLARGEMENT POSSIBLE LEFT ATRIAL ENLARGEMENT BORDERLINE ECG PREVIOUS TRACING : 11/14/2016 07.30 DOCTOR: Cesario Villalpando Interpretating Date/Time 11/18/2016 10:12:30
[2016-11-18 10:46] LABS: HEMOGLOBIN A1a 1.4 %; HEMOGLOBIN A1b 0.8 %; HEMOGLOBIN Ao 84.3 %; HEMOGLOBIN F 2.3 %; HEMOGLOBIN LA1C 2.3 %; HEMOGLOBIN P3 3.6 %
[2016-11-18] MEDS: ACETAMINOPHEN 325 MG TAB PO PRN ×3 (11:24→20:41)
--- NOTE | 2016-11-18 14:45 | PD.CONS ---
History of Present Illness Service [facility] Consult Requested By Psych Primary Care Physician Unknown Diagnoses: History of Present Illness This is a 56-year-old female that medical history significant for schizophrenia presents to the ER yesterday with concerns about worsening of her schizophrenia. She presented to the ER significant she was having hallucinations telling her to kill herself. Her medical history significant for osteoporosis, hypothyroidism, and HIV. She denies CP or SOB. Reports still hearing voices telling her to commit suicide. Her family member is here to visit her. Review of Systems Constitutional: DENIES: Fever, Chills Respiratory: DENIES: Cough, Wheezing, Shortness of breath Cardiovascular: DENIES: Chest pain, Palpitations Gastrointestinal: DENIES: Abdominal pain Musculoskeletal: DENIES: Joint pain Integumentary: DENIES: Rash Psychiatric: COMPLAINS OF: Depression, Hallucinations, Suicidal Ideation Past Family Social History Allergies: Coded Allergies: haloperidol (Unverified Allergy, Severe, STIFFNESS, 11/17/16) fluphenazine (Unverified Adverse Reaction, Severe, 11/17/16) lurasidone (Unverified Adverse Reaction, Severe, STIFF, 11/17/16) olanzapine (Unverified Adverse Reaction, Severe, STIFF, 11/17/16) Past Medical History HIV positive Osteoporosis Hypothyroid Autoimmune disease Past Surgical History Tubal ligation tonsillectomy Active Ordered Medications Miralax (Polyethylene Glycol 3350) 17 Gm Powd.pack 1 Pack PO DAILY Alyce-Colace (Sennosides-Docusate Sodium) 8.6-50 Mg Tab 1 Tab PO BID PRN Pulse Oximeter (Device) 1 Mis Mis 1 Ea .ROUTE DIRECTED Synthroid (Levothyroxine Sodium) 100 Mcg Tab 100 Mcg PO DAILY Ditropan (Oxybutynin Chloride) 5 Mg Tab 5 Mg PO DAILY Oxygen tank (Oxygen) 1 Ea Tank 2 Liter CANDICE.CANULA CONTINUOUS Oxygen Concentrator Portable Gaseous 2 L/min via Nasal Cannula Continuous For 99 months Alendronate (Alendronate Sodium) 70 Mg Tab 70 Mg PO WEEKLY Multiple Vitamin 1 Tab 1 Tab PO DAILY Perphenazine 16 Mg Tab 16 Mg PO HS Perphenazine 16 Mg Tab 8 Mg PO DAILY Tussin Cough Liq (Dextromethorphan HBr) 15 Mg/5 Ml Syp 10 Ml PO Q6H PRN Sertraline (Sertraline HCl) 100 Mg Tab 100 Mg PO DAILY Diphenhydramine (Diphenhydramine HCl) 25 Mg Cap 25 Mg PO HS Depakote ER (Divalproex Sodium) 500 Mg [place] 1,000 Mg PO HS Trihexyphenidyl (Trihexyphenidyl HCl) 2 Mg Tab 2 Mg PO TID Prezista (Darunavir) 800 Mg Tab 800 Mg PO DAILY Genvoya (Ofiogvminfqb-Dctowpekmw-Krvszorpaisa-Tenofvir) [phone] Mg Tab 1 Tab PO DAILY Social History Tobacco use one half pack per day, denies substance use, denies alcohol use Physical Exam Vital Signs Vital Signs Date Time Temp Pulse Resp B/P (MAP) Pulse Ox O2 Delivery O2 Flow Rate FiO2 11/18/16 06:11 97.6 87 16 119/83 (95) 97 11/17/16 22:55 97.6 79 16 90/63 (72) 97 11/17/16 22:05 11/17/16 21:51 66 18 103/77 (86) 97 11/17/16 17:50 68 18 121/81 (94) 96 Room Air 11/17/16 16:23 Physical Exam GENERAL: This is a well-nourished, well-developed patient, in no apparent distress. SKIN: No rashes, ecchymoses or lesions. Cool and dry. HEAD: Atraumatic. Normocephalic. No temporal or scalp tenderness. EYES: Pupils equal round and reactive. Extraocular motions intact. No scleral icterus. No injection or drainage. ENT: Nose without bleeding, purulent drainage or septal hematoma. Throat without erythema, tonsillar hypertrophy or exudate. Uvula midline. Airway patent. NECK: Trachea midline. No JVD or lymphadenopathy. Supple, nontender, no meningeal signs. CARDIOVASCULAR: Regular rate and rhythm without murmurs, gallops, or rubs. RESPIRATORY: Clear to auscultation. Breath sounds equal bilaterally. No wheezes , rales, or rhonchi. GASTROINTESTINAL: Abdomen soft, non-tender, nondistended. No hepato-splenomegaly , or palpable masses. No guarding. MUSCULOSKELETAL: Extremities without clubbing, cyanosis, or edema. No joint tenderness, effusion, or edema noted. No calf tenderness. Negative Homans sign bilaterally. NEUROLOGICAL: Awake and alert. Cranial nerves II through XII intact. Motor and sensory grossly within normal limits. Five out of 5 muscle strength in all muscle groups. Normal speech. Laboratory Laboratory Tests Test 11/18/16 09:15 Blood Urea Nitrogen 12 Creatinine 0.86 Random Glucose 79 Calcium Level 9.7 Sodium Level 137 Potassium Level 4.2 Chloride Level 98 Carbon Dioxide Level 33.3 Anion Gap 6 Estimat Glomerular Filtration Rate 68 Hemoglobin A1c 5.2 Triglycerides Level 125 Cholesterol Level 226 LDL Cholesterol 155 HDL Cholesterol 46.4 Cholesterol/HDL Ratio 4.87 Valproic Acid (Depakene) Level 46 Result Diagram: 11/17/1692511/18/16914 Assessment and Plan Problem List: (1) Osteoporosis ICD Codes: M81.0 - Osteoporosis Status: Acute (2) Psychiatric disorder ICD Codes: F99 - Mental disorder, not otherwise specified Status: Chronic (3) Tobacco dependence ICD Codes: F17.200 - Nicotine dependence, unspecified, uncomplicated Status: Chronic (4) Schizophrenia ICD Codes: F20.9 - Schizophrenia, unspecified (5) HLD (hyperlipidemia) ICD Codes: E78.5 - Hyperlipidemia, unspecified Assessment and Plan 56-year-old female admitted voluntarily to psych for decompensation of her schizophrenia. Hospitalist consulted to manage her chronic medical problems. 1. Schizophrenia: Management per psych 2. Hypothyroidism: Continue her Synthroid 100 g daily 3. Osteoporosis: Continue her L alendronate 70 mg weekly 4. Tobacco abuse: Counseled 5. HLD: total cholesterol, elevated HDL. Can be managed as an outpatient. Discharge Planning d/c pending psych Problem Qualifiers (1) Schizophrenia: Qualified Codes: F20.0 - Paranoid schizophrenia Yamilex Medrano MD Nov 18, 2016 14:45
[2016-11-18 18:47] VITALS: BP 120/90; PULSE 70; RESP 17; TEMP 97.7; O2SAT 100
[2016-11-18] MEDS: LORazepam 1 MG TAB PO PRN (20:44)
[2016-11-18] MEDS: DIVALPROEX SODIUM E.R. 500 MG TAB PO SCH (20:44)
[2016-11-18] MEDS: PERPHENAZINE 4 MG TAB PO SCH (20:44)
[2016-11-18] MEDS: diphenhydrAMINE HCL 25 MG CAP PO SCH (21:00)
[2016-11-19] MEDS: LEVOTHYROXINE SODIUM 100 MCG TAB PO SCH (05:03)
[2016-11-19 05:48] VITALS: BP 100/62; PULSE 96; RESP 18; TEMP 97.5; O2SAT 97
[2016-11-19] MEDS ORDERED: PERPHENAZINE 4 MG TAB PO SCH (09:00)
[2016-11-19] MEDS: REMOVE OLD PATCH T-DERMAL SCH (09:00)
[2016-11-19] MEDS: OXYBUTYNIN CHLORIDE 5 MG TAB PO SCH (09:01)
[2016-11-19] MEDS: SERTRALINE HCL 100 MG TAB PO SCH (09:01)
[2016-11-19] MEDS: DARUNAVIR 800 MG TAB PO SCH (09:01)
[2016-11-19] MEDS: TRIHEXYPHENIDYL HCL 2 MG TAB PO SCH ×3 (09:01→18:57)
[2016-11-19] MEDS: POLYETHYLENE GLYCOL 17 GM PKG PO SCH (09:01)
[2016-11-19] MEDS: MULTIVITAMIN TAB PO SCH (09:01)
[2016-11-19] MEDS: NICOTINE 21 MG/24 HR PATCH T-DERMAL SCH (09:01)
[2016-11-19] MEDS: [UNRECOGNIZED DRUG - OTHER] PO SCH (09:02)
--- NOTE | 2016-11-19 14:51 | HHI.PYPN ---
Subjective Remarks Patient was seen and case discussed with nursing. Patient is pleasant and cooperative with exam. She is disheveled and internally preoccupied area continues to feel that voices are telling her they're going to hurt her. She is compliant with her medications and tolerating them well. She is behaving well on the unit. She denies suicidal or homicidal ideation intent or plan Objective Alert: Yes [place]: Person, Place, Date Mood: Calm Affect: Blunted Memory Intact: Immediate (not formally assessed) Hallucinations: Auditory (that they want to hurt her, not command) Delusions: Yes Delusion Type: Paranoid Suicidal: Ideation (denies) Homicidal: Ideation (denies) Insight/Judgment Poor Vitals/IOs Vital Signs Date Time Temp Pulse Resp B/P (MAP) Pulse Ox O2 Delivery O2 Flow Rate FiO2 11/19/16 05:48 97.5 96 18 100/62 (75) 97 11/17/16 17:50 Room Air Assessment & Plan Problem List: (1) Schizophrenia ICD Codes: F20.9 - Schizophrenia, unspecified Assessment & Plan Continue current treatment plan Justification for Cont. Inpt. Patient would decompensate in a less restrictive setting Request HC Surrog/Guard Advoc?: No Problem Qualifiers (1) Schizophrenia: Qualified Codes: F20.0 - Paranoid schizophrenia Danilo Diaz DO Nov 19, 2016 14:51
[2016-11-19] MEDS: DIVALPROEX SODIUM E.R. 500 MG TAB PO SCH (21:49)
[2016-11-19] MEDS: diphenhydrAMINE HCL 25 MG CAP PO SCH (21:49)
[2016-11-19] MEDS: PERPHENAZINE 4 MG TAB PO SCH (21:50)
[2016-11-20 05:37] VITALS: BP 114/71; PULSE 66; RESP 17; TEMP 97.5; O2SAT 97
[2016-11-20] MEDS: LEVOTHYROXINE SODIUM 100 MCG TAB PO SCH (05:58)
--- NOTE | 2016-11-20 08:16 | HHI.PYPN ---
Subjective Remarks Patient seen and examined with nurse. Chart reviewed. Case discussed with nursing staff. On my examination today, the patient reports that she remains somewhat anxious related to ongoing auditory hallucinations. These voices are improved but remained quite threatening and tell the patient to "be careful" because they may hurt her. Denies command auditory hallucinations to hurt others or self. Sleep improved with hypnotic. Denies side effects from medications. Agreeable to titration of her Trilafon. No physical complaints. Review of Systems ROS Limitations: Psychotic Except as stated in HPI: all other systems reviewed are Neg Objective Alert: Yes [place]: Person, Place, Date Mood: Calm Affect: Blunted (remains a little blunted) Memory Intact: Comment (not formally assessed) Hallucinations: Auditory (as above) Delusions: Yes Delusion Type: Paranoid (lessening) Suicidal: Ideation (no SI) Homicidal: Ideation (no HI) Insight/Judgment Poor Remarks No motor abnormalities noted. Thought process linear. Grooming and hygiene good. Labs Labs reviewed. Vitals/IOs Vital Signs Date Time Temp Pulse Resp B/P (MAP) Pulse Ox O2 Delivery O2 Flow Rate FiO2 11/20/16 05:37 97.5 66 17 114/71 (85) 97 11/17/16 17:50 Room Air Assessment & Plan Problem List: (1) Schizophrenia ICD Codes: F20.9 - Schizophrenia, unspecified Assessment & Plan Titrate Trilafon to 8/8/24 mg. Continue other psychotropics including Depakote and Zoloft as ordered. Plan to check another Depakote level after appropriate interval. Hospitalist input appreciated. Continue other medications and care as ordered. Justification for Cont. Inpt. Medication changes. Impairment in reality construction. High risk for decompensation in less restrictive environment. Discharge Planning Pending psychiatric stabilization. Request HC Surrog/Guard Advoc?: No Problem Qualifiers (1) Schizophrenia: Qualified Codes: F20.0 - Paranoid schizophrenia Abdon Vaughn MD Nov 20, 2016 08:16
[2016-11-20] MEDS: REMOVE OLD PATCH T-DERMAL SCH (09:00)
[2016-11-20] MEDS: POLYETHYLENE GLYCOL 17 GM PKG PO SCH (09:00)
[2016-11-20] MEDS: [UNRECOGNIZED DRUG - OTHER] PO SCH (09:00)
[2016-11-20] MEDS: NICOTINE 21 MG/24 HR PATCH T-DERMAL SCH (09:00)
[2016-11-20] MEDS: PERPHENAZINE 4 MG TAB PO SCH ×3 (09:00→20:36)
[2016-11-20] MEDS: SERTRALINE HCL 100 MG TAB PO SCH (09:19)
[2016-11-20] MEDS: OXYBUTYNIN CHLORIDE 5 MG TAB PO SCH (09:20)
[2016-11-20] MEDS: DARUNAVIR 800 MG TAB PO SCH (09:20)
[2016-11-20] MEDS: TRIHEXYPHENIDYL HCL 2 MG TAB PO SCH ×3 (09:20→18:00)
[2016-11-20] MEDS: MULTIVITAMIN TAB PO SCH (09:20)
[2016-11-20 18:00] VITALS: BP 114/71; PULSE 63; RESP 17; TEMP 97.5; O2SAT 99
[2016-11-20] MEDS: diphenhydrAMINE HCL 25 MG CAP PO SCH (20:36)
[2016-11-20] MEDS: DIVALPROEX SODIUM E.R. 500 MG TAB PO SCH (20:36)
[2016-11-21] MEDS: LEVOTHYROXINE SODIUM 100 MCG TAB PO SCH (06:00)
[2016-11-21 06:18] VITALS: BP 124/78; PULSE 63; RESP 17; TEMP 77.2; O2SAT 98
--- NOTE | 2016-11-21 07:21 | HHI.PYPN ---
Subjective Remarks Patient seen and examined. Chart reviewed. Case discussed in treatment team. On my examination today, the patient says that she feels like she is improving. Her threatening auditory hallucinations are "more calm. More normal. Like the other voices I always hear. They're a little depressing. I try not to listen." No SI or HI. She is requesting additional Artane as she says the increased dose of Trilafon is making her feel like she is experiencing some EPS. No other side effects. Complaining of constipation but still passing flatus. No physical complaints otherwise. Review of Systems Except as stated in HPI: all other systems reviewed are Neg Objective Alert: Yes [place]: Person, Place, Date Mood: Calm Affect: Appropriate Memory Intact: Comment (intact on clinical exam) Hallucinations: Auditory (decreasing) Delusions: No Delusion Type: Other (No delusions) Suicidal: Ideation (no SI) Homicidal: Ideation (no HI) Insight/Judgment Poor Remarks No hand tremor, no cogwheeling, no dystonias, no dyskinesias. Thought processes fairly linear. Grooming and hygiene fair. Labs Labs reviewed. Vitals/IOs Vital Signs Date Time Temp Pulse Resp B/P (MAP) Pulse Ox O2 Delivery O2 Flow Rate FiO2 11/21/16 06:18 77.2 63 17 124/78 (93) 98 11/17/16 17:50 Room Air Assessment & Plan Problem List: (1) Schizophrenia ICD Codes: F20.9 - Schizophrenia, unspecified Assessment & Plan Titrate Artane to 3 mg 3 times daily. I cautioned the patient that this may exacerbate her constipation. Add Alyce-Colace. Continue Trilafon and other psychotropics as ordered. Continue other medications and care as ordered. Justification for Cont. Inpt. Medication changes. Risk for decompensation. Resolving impairment in reality construction. Discharge Planning Pending psychiatric stabilization. Anticipate discharge by the end of the week. Case discussed with counselor, Rianna. Request HC Surrog/Guard Advoc?: No Problem Qualifiers (1) Schizophrenia: Qualified Codes: F20.0 - Paranoid schizophrenia Abdon Vaughn MD Nov 21, 2016 07:21
[2016-11-21] MEDS ORDERED: PILL SPLITTER OTHER PRN (07:30)
[2016-11-21] MEDS: POLYETHYLENE GLYCOL 17 GM PKG PO SCH (09:00)
[2016-11-21] MEDS: [UNRECOGNIZED DRUG - OTHER] PO SCH (09:00)
[2016-11-21] MEDS: REMOVE OLD PATCH T-DERMAL SCH (09:00)
[2016-11-21] MEDS: NICOTINE 21 MG/24 HR PATCH T-DERMAL SCH (09:00)
[2016-11-21] MEDS: DOCUSATE SODIUM 50 MG/SENNA 8.6 MG TAB PO SCH ×2 (09:17→20:25)
[2016-11-21] MEDS: PERPHENAZINE 4 MG TAB PO SCH ×3 (09:19→20:26)
[2016-11-21] MEDS: TRIHEXYPHENIDYL HCL 2 MG TAB PO SCH ×3 (09:19→16:47)
[2016-11-21] MEDS: MULTIVITAMIN TAB PO SCH (09:20)
[2016-11-21] MEDS: SERTRALINE HCL 100 MG TAB PO SCH (09:20)
[2016-11-21] MEDS: OXYBUTYNIN CHLORIDE 5 MG TAB PO SCH (09:20)
[2016-11-21] MEDS: DARUNAVIR 800 MG TAB PO SCH (09:21)
[2016-11-21 18:40] VITALS: BP 146/100; PULSE 73; RESP 18; TEMP 98.2; O2SAT 96
[2016-11-21] MEDS: LORazepam 1 MG TAB PO PRN (20:24)
[2016-11-21] MEDS: DIVALPROEX SODIUM E.R. 500 MG TAB PO SCH (20:25)
[2016-11-21] MEDS: diphenhydrAMINE HCL 25 MG CAP PO SCH (20:25)
[2016-11-21] MEDS: PRAVASTATIN SOD 40 MG TAB PO SCH (20:26)
[2016-11-22 06:00] VITALS: BP 138/94; PULSE 53; RESP 16; TEMP 97.7; O2SAT 98
[2016-11-22] MEDS: LEVOTHYROXINE SODIUM 100 MCG TAB PO SCH (06:00)
[2016-11-22] MEDS: [UNRECOGNIZED DRUG - OTHER] PO SCH (09:00)
[2016-11-22] MEDS: MULTIVITAMIN TAB PO SCH (09:01)
[2016-11-22] MEDS: TRIHEXYPHENIDYL HCL 2 MG TAB PO SCH ×3 (09:01→17:50)
[2016-11-22] MEDS: DARUNAVIR 800 MG TAB PO SCH (09:01)
[2016-11-22] MEDS: DOCUSATE SODIUM 50 MG/SENNA 8.6 MG TAB PO SCH ×2 (09:01→20:11)
[2016-11-22] MEDS: SERTRALINE HCL 100 MG TAB PO SCH (09:01)
[2016-11-22] MEDS: OXYBUTYNIN CHLORIDE 5 MG TAB PO SCH (09:01)
[2016-11-22] MEDS: POLYETHYLENE GLYCOL 17 GM PKG PO SCH (09:02)
[2016-11-22] MEDS: NICOTINE 21 MG/24 HR PATCH T-DERMAL SCH (09:02)
[2016-11-22] MEDS: PERPHENAZINE 4 MG TAB PO SCH ×3 (09:05→20:12)
[2016-11-22] MEDS: REMOVE OLD PATCH T-DERMAL SCH (09:10)
--- NOTE | 2016-11-22 09:50 | HHI.PYPN ---
Subjective Remarks Patient seen and examined. Chart reviewed. Case discussed with nursing staff. No behavioral issues noted. Still no BM despite escalation of bowel regimen. Case discussed with counselor. On my examination today, the patient reports that she is feeling improved. She is more comfortable being out in the day area and in the milieu. She denies any audiovisual hallucinations this morning. Denies any suicidal or homicidal ideation. Denies any side effects from medications. No physical complaints. She would like to return to her facility tomorrow. Review of Systems Except as stated in HPI: all other systems reviewed are Neg Objective Alert: Yes [place]: Person, Place, Date Mood: Calm Affect: Appropriate (remains appropriate) Memory Intact: Comment (intact) Hallucinations: Other (denies AVH) Delusions: No Delusion Type: Other (no delusions elicited) Suicidal: Ideation (denies SI) Homicidal: Ideation (denies HI) Insight/Judgment Fair Remarks No motor abnormalities noted. Thought process linear. Grooming and hygiene good. Labs Labs reviewed. Vitals/IOs Vital Signs Date Time Temp Pulse Resp B/P (MAP) Pulse Ox O2 Delivery O2 Flow Rate FiO2 11/22/16 06:00 97.7 53 16 138/94 (109) 98 Assessment & Plan Problem List: (1) Schizophrenia ICD Codes: F20.9 - Schizophrenia, unspecified Assessment & Plan Continue current psychotropics as ordered. Check a Depakote level this evening. Dulcolax 10mg once. Continue to monitor on the inpatient unit. Continue other medications and care as ordered. Justification for Cont. Inpt. Risk for decompensation Discharge Planning Anticipate discharge tomorrow, Request HC Surrog/Guard Advoc?: No Problem Qualifiers (1) Schizophrenia: Qualified Codes: F20.0 - Paranoid schizophrenia Abdon Vaughn MD Nov 22, 2016 09:50
[2016-11-22] MEDS ORDERED: BISACODYL EC 5 MG TABEC PO ONE (13:30)
--- NOTE | 2016-11-22 18:05 | HHI.PR ---
Subjective Remarks Follow-up for medical management consult. Pt seen and evaluated. Pt noted she is to be discharged tomorrow. She denied aches, pains, cough, shortness of breath, weakness, and nausea and vomiting. She did endorse "walking a bit slower than usual." Per RN pt is scheduled to be discharged tomorrow. RN stated pt has not had "a bowel movement in 4 days." Objective Vitals Vital Signs Date Time Temp Pulse Resp B/P (MAP) Pulse Ox O2 Delivery O2 Flow Rate FiO2 11/22/16 06:00 97.7 53 16 138/94 (109) 98 11/21/16 18:40 98.2 73 18 146/100 (115) 96 I/O 11/21/16 11/21/16 11/21/16 11/22/16 11/22/16 11/22/16 07:00 15:00 23:00 07:00 15:00 23:00 Intake Total 480 ml Balance 480 ml Intake Oral 480 ml Result Diagram: 11/18/16914 Objective Remarks GENERAL: Pt encountered in hallway of psychiatric service, awaiting to go to activity SKIN: Warm and dry. HEAD: Normocephalic. EYES: No scleral icterus. No injection or drainage. NECK: Supple, trachea midline. No JVD or lymphadenopathy. CARDIOVASCULAR: Regular rate and rhythm without murmurs, gallops, or rubs. RESPIRATORY: Breath sounds equal bilaterally. No accessory muscle use. GASTROINTESTINAL: Abdomen soft, non-tender, nondistended. MUSCULOSKELETAL: No cyanosis, or edema. PSYCHIATRIC: Flat affect. Pleasant and cooperative. Speech was clear and fluent. Medications and IVs Current Medications Medications (Trade) Dose Ordered Sig/Promise Route Start Time Stop Time Status Last Admin (Prezista) 800 mg DAILY PO 11/18/16 09:00 11/22/16 09:01 (Benadryl) 25 mg HS PO 11/18/16 21:00 11/21/16 20:25 (Depakote Er) 1,000 mg HS PO 11/18/16 21:00 11/21/16 20:25 (Synthroid) 100 mcg DAILY@0600 PO 11/18/16 06:00 11/22/16 06:00 (Ditropan) 5 mg DAILY PO 11/18/16 09:00 11/22/16 09:01 (Miralax) 17 gm DAILY PO 11/18/16 09:00 11/22/16 09:02 (Alyce-Colace) 1 tab BID PRN PO 11/17/16 21:45 (Zoloft) 100 mg DAILY PO 11/18/16 09:00 11/22/16 09:01 Patient Own Medication PT OWN MED: Elvitegravir-Cobicist... DAILY PO 11/18/16 09:00 11/22/16 09:00 (Theragran) 1 tab DAILY PO 11/18/16 09:00 11/22/16 09:01 (Ativan) 1 mg Q6H PRN PO 11/17/16 21:45 11/21/16 20:24 (Ativan Inj) 1 mg Q6H PRN IM 11/17/16 21:45 (Benadryl) 50 mg HS PRN PO 11/17/16 21:45 11/18/16 20:44 (Tylenol) 650 mg Q4H PRN PO 11/17/16 21:45 11/18/16 20:41 (Mag-Al Plus Susp Liq) 30 ml Q6H PRN PO 11/17/16 21:45 (Habitrol 21 Mg Patch.24 Hr) 1 patch DAILY T-DERMAL 11/18/16 09:00 11/22/16 09:02 (Cogentin) 1 mg Q12H PRN PO 11/17/16 21:45 (Cogentin Inj) 1 mg Q12H PRN IM 11/17/16 21:45 Miscellaneous Information 1 DAILY T-DERMAL 11/18/16 09:00 11/22/16 09:10 (Trilafon) 24 mg HS PO 11/18/16 21:00 11/21/16 20:26 (Trilafon) 8 mg DAILY@0900,1300 PO 11/20/16 09:00 11/22/16 12:22 (Artane) 3 mg TID PO 11/21/16 09:00 11/22/16 12:22 (Alyce-Colace) 1 tab BID PO 11/21/16 09:00 11/22/16 09:01 (Pill Splitter) 1 ea UNSCH PRN OTHER 11/21/16 07:30 (Pravachol) 40 mg HS PO 11/21/16 21:00 11/21/16 20:26 Urinary Catheter: No A/P Assessment and Plan 56-year-old female admitted voluntarily to psych for decompensation of her schizophrenia. Hospitalist consulted to manage her chronic medical problems. Elevated GFR: improved on follow up testing (11/18). Lab results pending. Hyponatremia: improved on 11/18. Labs pending. HIV: pt has continued her home regimen. Constipation: pt prescribed Ducolax EC and Alyce-colace by psychiatry team. Pt tolerating PO intake. Pt is medically cleared at this time. 1. Schizophrenia: Management per psych 2. Hypothyroidism: Continue her Synthroid 100 g daily 3. Osteoporosis: Continue her L alendronate 70 mg weekly 4. HLD: total cholesterol, elevated HDL. Can be managed as an outpatient. Discussed with Pt, RN, and Dr. Chandler. Discharge Planning Psychiatric team is pursuing discharge on 11/23/16. Maxim Lima Jr. Nov 22, 2016 18:04
[2016-11-22 18:30] VITALS: BP 160/101; PULSE 70; RESP 16; TEMP 97.3
[2016-11-22] MEDS: diphenhydrAMINE HCL 25 MG CAP PO SCH (20:11)
[2016-11-22] MEDS: DIVALPROEX SODIUM E.R. 500 MG TAB PO SCH (20:12)
[2016-11-22] MEDS: PRAVASTATIN SOD 40 MG TAB PO SCH (20:12)
[2016-11-22] MEDS: LORazepam 1 MG TAB PO PRN (20:14)
[2016-11-22 22:38] LABS: BICARBONATE 29.7 MEQ/L (21.0-32.0); POTASSIUM 3.6 MEQ/L (3.5-5.1)
[2016-11-23] MEDS: LEVOTHYROXINE SODIUM 100 MCG TAB PO SCH (05:26)
[2016-11-23 06:19] VITALS: BP 124/79; PULSE 63; RESP 16; TEMP 97.8; O2SAT 98
[2016-11-23] MEDS ORDERED: SENN1TAB PO (08:27)
[2016-11-23] MEDS ORDERED: PRAV40TA PO (08:27)
[2016-11-23] MEDS ORDERED: TRIH2 PO (08:27)
[2016-11-23] MEDS ORDERED: PERP4TAB24 PO ×2 (08:27)
--- NOTE | 2016-11-23 08:27 | HHI.DS ---
Psychiatry Discharge Summary Inpatient Psychiatric care?: Yes Advance Directive: Yes Mental Health AdvanceDirective: No Health Care Proxy: No Admission Admission Date Nov 17, 2016 at 21:33 Admission Diagnosis: (1) Schizophrenia ICD Code: F20.9 - Schizophrenia, unspecified Brief History Ms. Back is a 56-year-old female with a history of schizophrenia who presents under a Guillaume act. Reviewing the electronic medical record, I note the patient was admitted here most recently under Dr. Darden in 2012. Patient seen and examined. Chart reviewed. Case discussed with nursing staff. On my examination today, the patient reports 2 weeks of "threatening voices" that she describes as her own voice inside her head and intermittent in frequency. She says that the voices are telling her that they want her to get hurt or killed. She is feeling increasingly paranoid and nervous, particularly about going outside of the facility that she stays at. Mood is depressed. She says that she has been pacing the grounds more. Endorses suicidal ideation with no plan. Denies homicidal ideation. She believes that her psychotropic medications have to be changed. No hypomanic or manic symptoms. No other delusions or hallucinations. Remainder of psychiatric ROS is negative. Past psychiatric history: Patient reports a history of schizophrenia. Follows at [facility]. Last hospitalization was 3 years ago. Endorses a history of suicide attempt by aspirin overdose. Family history: The patient reports that both of her parents struggled with psychotic illness. Chemical dependency history: Patient denies any abuse of drugs or alcohol. Social history: The patient reports she resides a [facility] for 5 years. She says that she doesn't like where she lives at because there are "too many voices." 10th grade education. On disability. with 2 children. Tobacco Use In Past 30 Days: Cigars and/or Pipe Daily Alcohol Use: Never Hospital Course Patient was admitted to a locked, inpatient psychiatric unit. A general medical consultation was obtained. Appropriate precautions were in place throughout patient's hospital stay. Patient was seen and examined daily on the unit by psychiatry and also visited by counselor. Psychotropic medications were adjusted. Patient tolerated medication changes well without side effects. Patient had improvement in presenting psychiatric symptomatology during the course of her hospital stay. There was no evidence of any suicidality or homicidality on the inpatient unit. The patient remained in good behavioral control and was medication compliant. On the day of discharge: Patient seen and examined. Chart reviewed. Case discussed with nursing staff. Patient has moved her bowels overnight. On my examination today, the patient is in good spirits. She is requesting discharge from the inpatient psychiatric unit. She denies any command auditory hallucinations and reports only mild, residual auditory hallucinations of an echo of her own speech, which she says is a component of her baseline illness. No other hallucinatory material. She denies any suicidal or homicidal ideation, intent or plan on direct questioning and contracts for safety. Mood is stable and I can elicit no depressive or hypomanic/manic symptoms. No delusions. She slept well overnight. Denies side effects from medications. No physical complaints. Weighing the acute, chronic, and protective factors and based on the available evidence, I juvenile court judge to a reasonable degree of medical certainty that the patient is at low imminent risk of harm to self or others from a mental illness as defined under the Guillaume act and her level of function is adequate for outpatient care. Patient has maximized benefit from this inpatient psychiatric hospital stay and will be discharged today with psychiatric follow-up as arranged by counselor. Patient is also to follow-up with primary care. I counseled the patient regarding warning signs for need to return to the psychiatric emergency room as part of a general safety plan. Results Blood Pressure 124 / 79 Vital Signs Date Time Temp Pulse Resp B/P (MAP) Pulse Ox O2 Delivery O2 Flow Rate FiO2 11/23/16 06:19 97.8 63 16 124/79 (94) 98 Laboratory Tests Test 11/22/16 21:58 Sodium Level 134 MEQ/L (136-145) Chloride Level 95 MEQ/L (98-107) Estimat Glomerular Filtration Rate 63 ML/MIN (>89) Ammonia LESS THAN 10 MCMOL/L Laboratory Results Test 11/18/16 09:15 11/22/16 21:58 Cholesterol Level 226 MG/DL (120-200) HDL Cholesterol 46.4 MG/DL (40.0-60.0) Hemoglobin A1c 5.2 % (4.3-6.0) LDL Cholesterol 155 MG/DL (0-99) Triglycerides Level 125 MG/DL (42-150) Valproic Acid (Depakene) Level 58 MCG/ML (50-100) Summary of Major Lab Results VPA level within therapeutic range. Summary of Procedures None done Imaging None done Pending results at discharge: No Medications # of Antipsychotic meds at D/C: 1 Approp Antipsych med options 1 - Minimum of three failed multiple trials of monotherapy. 2 - Documented plan to taper to monotherapy due to previous use of multiple meds OR cross-taper in progress at D/C. 3 - Documentation of augmentation of Clozapine. 4 - Justification other than those listed in allowable values 1-3, document here : Discharge Discharge Date: Nov 23, 2016 Discharge Diagnosis: (1) Schizophrenia Diagnosis: Principal (stabilized) ICD Code: F20.9 - Schizophrenia, unspecified Mental Status Exam at Disch Patient is casually dressed. Patient is well groomed. Patient is awake and alert and oriented person in hospital at least. No evidence of delirium. No motor abnormalities appreciated. No hand tremor, no dystonia, no dyskinesia noted. Speech is within normal limits for rate, tone, volume. Mood is stable. Affect is fairly full and reactive. Thought process linear. No delusions elicited. Minimal residual auditory hallucinations as detailed above. Denies command auditory hallucinations. No other hallucinations. Denies suicidal or homicidal ideation, intent, or plan and contracts for safety. Insight and judgment seem fair. Pt Condition on Discharge: Stable Discharge Disposition: Discharge Home Discharge Instructions Diet Instructions: As Tolerated, No Restrictions Activities you can perform: Weight Bearing as [place] Scheduled Appointment: as per counselor's notes New Medications: Perphenazine (Perphenazine) 4 Mg Tablet 8 MG PO DAILY@0900,1300 for Mental Health for 15 Days, TAB 1 Refill Perphenazine (Perphenazine) 4 Mg Tablet 24 MG PO HS for Mental Health for 15 Days, TAB 1 Refill Pravastatin (Pravachol) 40 Mg Tab 40 MG PO HS for Cholesterol Management for 15 Days, TAB 1 Refill Sennosides-Docusate Sodium (Senna Plus 8.6-50 mg) 8.6 Mg-50 Mg Tab 1 TAB PO BID for Constipation for 15 Days, TAB 1 Refill Stop this medication if stools become loose. Trihexyphenidyl (Trihexyphenidyl) 2 Mg Tab 3 MG PO TID for Side effect management. for 15 Days, TAB 1 Refill Continued Medications: Alendronate (Alendronate) 70 Mg Tab 70 MG PO WEEKLY for Osteporosis Treatment, #4 TAB 11 Refills Darunavir (Prezista) 800 Mg Tab 800 MG PO DAILY for Mgmt Viral Infection, #30 TAB 0 Refills Diphenhydramine (Diphenhydramine) 25 Mg Cap 25 MG PO HS for INSOMNIA, CAP 0 Refills Divalproex ER (Depakote ER) 500 Mg [place] 1000 MG PO HS for Control Seizures, #60 TAB 0 Refills Dnkehpsolfmd-Ycxetvduhy-Lvmfzyiwnzvj-Tenofvir (Genvoya) [phone] Mg Tab 1 TAB PO DAILY for Mgmt Viral Infection, #30 TAB 0 Refills Levothyroxine (Synthroid) 100 Mcg Tab 100 MCG PO DAILY for Thyroid, #30 TAB 11 Refills Multiple Vitamin (Multiple Vitamin) 1 Tab 1 TAB PO DAILY for Nutritional Supplement, #30 TAB 11 Refills Oxybutynin (Ditropan) 5 Mg Tab 5 MG PO DAILY for Urinary Symptom Managemen, #30 TAB 0 Refills Polyethylene Glycol 3350 (Miralax) 17 Gm Powd.pack 1 PACK PO DAILY, #30 BOX Sertraline (Sertraline) 100 Mg Tab 100 MG PO DAILY, #30 TAB 0 Refills Discontinued Medications: Dextromethorphan Liq (Tussin Cough Liq) 15 Mg/5 Ml Syp 10 ML PO Q6H PRN for COUGH, #1 BOTTLE 0 Refills Perphenazine (Perphenazine) 16 Mg Tab 8 MG PO DAILY, #30 TAB 0 Refills Perphenazine (Perphenazine) 16 Mg Tab 16 MG PO HS, #30 TAB 0 Refills Sennosides-Docusate Sodium (Alyce-Colace) 8.6-50 Mg Tab 1 TAB PO BID PRN for Constipation, #60 TAB 0 Refills Trihexyphenidyl (Trihexyphenidyl) 2 Mg Tab 2 MG PO TID for SCHIZOPHRENIA, #90 TAB 0 Refills Discharge Time <= 30 minutes Discharge/Advance Care Plan Health Problems: (1) Schizophrenia Goals to promote your health * To prevent worsening of your condition and complications * To maintain your health at the optimal level Directions to meet your goals Take your medications as prescribed Follow your dietary instruction Follow activity as directed Keep your appointments as scheduled Take your immunizations and boosters as scheduled If your symptoms worsen call your PCP, if no PCP go to Urgent Care Center or Emergency Room For 09/10 questions related to your inpatient stay or results of tests pending at discharge, please contact Dr. Abdon Vaughn at Smoking is Dangerous to Your Health. Avoid second hand smoking Problem Qualifiers (1) Schizophrenia: Qualified Codes: F20.0 - Paranoid schizophrenia Abdon Vaughn MD Nov 23, 2016 08:27
[2016-11-23] MEDS: SERTRALINE HCL 100 MG TAB PO SCH (08:28)
[2016-11-23] MEDS: POLYETHYLENE GLYCOL 17 GM PKG PO SCH (08:28)
[2016-11-23] MEDS: DARUNAVIR 800 MG TAB PO SCH (08:28)
[2016-11-23] MEDS: OXYBUTYNIN CHLORIDE 5 MG TAB PO SCH (08:28)
[2016-11-23] MEDS: DOCUSATE SODIUM 50 MG/SENNA 8.6 MG TAB PO SCH (08:28)
[2016-11-23] MEDS: [UNRECOGNIZED DRUG - OTHER] PO SCH (08:29)
[2016-11-23] MEDS: TRIHEXYPHENIDYL HCL 2 MG TAB PO SCH (08:33)
[2016-11-23] MEDS: REMOVE OLD PATCH T-DERMAL SCH (09:00)
[2016-11-23] MEDS: MULTIVITAMIN TAB PO SCH (09:00)
[2016-11-23] MEDS: PERPHENAZINE 4 MG TAB PO SCH (09:00)
[2016-11-23] MEDS: NICOTINE 21 MG/24 HR PATCH T-DERMAL SCH (09:00)
[2016-12-12] MEDS ORDERED: PALI234P IM (14:54)
[2016-12-12] MEDS ORDERED: ALEV220T14 PO (14:54)
[2016-12-12] MEDS ORDERED: DIPH25CA PO (14:54)
[2016-12-12] MEDS ORDERED: ALBUAER3 INH ×2 (14:54→14:57)
[2016-12-12] MEDS ORDERED: TRIH2 PO (14:54)
[2016-12-12] MEDS ORDERED: VITA100064 PO (15:03)
[2016-12-12] MEDS ORDERED: PULM90IN INH (15:03)
[2016-12-17] MEDS ORDERED: PULM90IN INH (21:44)
[2016-12-25] MEDS ORDERED: BECL80AE3 INH (13:25)
== END 2016-11-23 11:20 | DRG 885 ==
LOC: NEPD 08:36 → NEDA 21:33 → H270 22:11 → H260 11-19 10:45
PROVIDERS: ADMIT Psychiatry & Neurology Psychiatry; ATTEND Psychiatry & Neurology Psychiatry
DX: F20.0 Paranoid schizophrenia (principal); B20 Human immunodeficiency virus [HIV] disease; R45.851 Suicidal ideations; E87.1 Hypo-osmolality and hyponatremia; Z99.81 Dependence on supplemental oxygen; M81.0 Age-related osteoporosis without current pathological fracture; E03.9 Hypothyroidism, unspecified; G47.00 Insomnia, unspecified; F17.210 Nicotine dependence, cigarettes, uncomplicated; E78.5 Hyperlipidemia, unspecified; K59.00 Constipation, unspecified; Z79.83 Long term (current) use of bisphosphonates; Z91.5 Personal history of self-harm
CPT/HCPCS: 80048; 80053; 80061; 80164; 80307; 82140; 83036; 85025; 93005; 96360; J7030; Q0163; Q0175

== ENCOUNTER → 2016-12-20 | Outpatient (CLI) | payer MEDICAID ==
[~2016-12-20] MED LIST changes: +ALBUAER3 INH; +ALEV220T14 PO; +BECL80AE3 INH; +PALI234P IM; -PERI8.6T PO; -PERP16TA6 PO; +PERP4TAB24 PO; +PRAV40TA PO; +PULM90IN INH; +SENN1TAB PO; -TUSS15SY PO; +VITA100064 PO
--- NOTE | 2016-12-22 09:03 | RSPPFT ---
DATE OF PROCEDURE: 12/20/16 COMMENTS: The forced vital capacity shows a small reduction. There is a marked reduction in the FEV1 and FEF 25-75 with significant improvement after bronchodilator. The FEV1/FVC ratio is also reduced. IMPRESSION: This compatible with moderate, large and small airways, partially reversible obstructive lung disease.
== END ==
LOC: HRSP 12:06
PROVIDERS: ATTEND Family Medicine
DX: J44.9 Chronic obstructive pulmonary disease, unspecified (principal)
CPT/HCPCS: 94060